=== PATIENT | male | born 1935 | race Caucasian/White ===

== ENCOUNTER → 2017-06-19 | Outpatient (CLI) | payer BC ==
[~2017-06-19] MED LIST: CALCTAB5 PO; CENTRUM A Z PO; CYAN100020 PO; Metamucil PO; OMEG10007 PO; Vitamin D PO
[2017-06-19 13:44] LABS: BASO % 1.9 %; BASO ABS # 0.07 K/uL (0-0.2); COMPLETE YES; EOS % 5.9 %; HEMATOCRIT 39.1 % (42-52); LYMPH % 23.2 %; LYMPH ABS # 0.86 K/uL (1.2-3.4); MEAN CELL VOLUME 105.7 fL (80-100); MEAN CORPUSCULAR HEMOGLOBIN 35.4 pg (25-34); MEAN CORPUSCULAR HGB CONC 33.5 g/dl (32-36); MEAN PLATELET VOLUME 9.6 fL (7.4-10.4); MONO % 14.1 %; NEUT % 54.9 %; PLATELET COUNT 202 K/uL (130-400)
[2017-06-19 14:05] LABS: ALT/SGPT 24 U/L (12-78); AST/SGOT 20 U/L (15-37); BLOOD UREA NITROGEN 16 mg/dl (7-18); BUN/CREATININE RATIO 14.1 (10-20); CALCIUM 8.7 mg/dl (8.5-10.1); CARBON DIOXIDE 25 mmol/L (21-32); CHLORIDE 107 mmol/L (98-107); GLUCOSE 88 mg/dl (70-99); POTASSIUM 4.5 mmol/L (3.5-5.1); SODIUM 140 mmol/L (136-145)
[2017-06-19 14:17] LABS: ALB/GLOB RATIO 1.1 (0.9-2); ALKALINE PHOSPHATASE 43 U/L (45-117); CHOLESTEROL 209 mg/dl (0-200); CHOLESTEROL/HDL RATIO 1.8; HDL CHOLESTEROL 116 mg/dl; LDL CHOLESTEROL CALCULATED 74 mg/dl; TRIGLYCERIDES 94 mg/dl (0-150); VERY LOW DENSITY LIPOPROT CALC 19 mg/dl
== END | disposition home or self-care (01) ==
LOC: C.LABBC 11:28
PROVIDERS: ATTEND Internal Medicine
DX: C18.9 Malignant neoplasm of colon, unspecified (principal); D72.819 Decreased white blood cell count, unspecified; D53.9 Nutritional anemia, unspecified; E53.8 Deficiency of other specified B group vitamins

== ENCOUNTER 2019-12-31 10:18 | Observation (INO) ==
[2019-12-31] MEDS ORDERED: SODIUM CHLORIDE 0.9% 1000ML 1,000 ML IV SCH (10:45)
--- NOTE | 2019-12-31 10:48 | Emergency Department Note ---
History of Present Illness General Chief complaint: Fall Stated complaint: back pain Time Seen by Provider: 12/31/19 10:22 Source: patient, family and EMS Mode of arrival: EMS Limitations: other (Alzheimer's dementia) History of Present Illness Maximum Pain Intensity: 4 This patient was brought in by EMS after having a fall. He was seen about 2 weeks ago and diagnosed with a T12 compression fracture. He lives at home with his . He does have Alzheimer's dementia and he has been getting increasing Diego confused and weak. Yesterday they did move the bedroom downstairs so he did not have to go up and down stairs he wandered up the stairs about an hour prior to arrival and she found him upstairs and he went to try to sit down where the bed was in the landed on his buttocks/back. There was no loss of consciousness or syncope. He is on no blood thinners. No chest pain or shortness of breath. he points to the epigastric area where he says he has some pain his does not think he injured himself there. He did travel to [place] on December 13 but since then has had no fever or flulike symptoms. He is scheduled to see orthopedics for his T12 compression fracture but has yet to see them. No defini te new numbness or weakness. He has had decreased appetite but has been drinking fluids. No blood or melena in his stool. Home Medications Home Medications Medication Instructions Recorded Confirmed Type cyanocobalamin (vitamin B-12) 1,000 mcg IM MONTHLY ea 07/16/19 12/31/19 History 1,000 mcg/mL injection kit ascorbic acid (vitamin C) [Vitamin 0 mg PO DAILY 12/18/19 12/31/19 History C] cholecalciferol (vitamin D3) 0 unit PO DAILY 12/18/19 12/31/19 History [Vitamin D3] cyanocobalamin (vitamin B-12) 0 mcg PO DAILY 12/18/19 12/31/19 History [Vitamin B-12] Allergies Allergy/AdvReac Type Severity Reaction Status Date / Time Influenza Virus Vaccines Allergy Mild Rash, Verified 12/31/19 11:22 swelling Past Med/Surg History Medical History (Updated 12/31/19 @ 14:05 by Chris Gomez, DO) Alcohol withdrawal B12 deficiency (Chronic) Basal cell carcinoma Cognitive impairment (Chronic) Colon cancer (Chronic) History of cataract Left eye Hyponatremia (Chronic) Macrocytic anemia (Chronic) MCI (mild cognitive impairment) Rosacea (Chronic) SIADH (syndrome of inappropriate ADH production) (Chronic) Syncope (Inactive) Vitamin D insufficiency (Chronic) Surgical History Fx wrist H/O inguinal hernia repair History of bowel resection History of colonoscopy History of hernia repair Hx of cholecystectomy Family History Father , Age 71 Stroke Mother , Age 92 Colorectal cancer Social History Preferred Language: Micronesian Communication Ability: Effective Visual Impairment: No Limitations Hearing Ability: Normal Pharmaceutical Representative Required: No Beliefs That Will Affect Care: None marital status: Current Living Situation: Spouse current occupational status: retired Other Information That Helps Us Care for You: No Feels Safe at Home: Yes Safety Concerns: Feels Safe At This Time Smoking Status: Never smoker Do You Dip or Chew Tobacco: No ; Second Hand Exposure: No ; Tobacco Cessation Education Requested by Patient: No Hx Alcohol Use: Yes Alcohol type: wine Alcohol Intake Frequency: Holidays/Special Occasions Hx Substance Use: No Childhood Exposure to Second-Hand Smoke: Yes Dental Care, Regularly: Yes Physical Activity Frequency: Daily Seatbelt Use: always Sunscreen Use: Yes Immunizations: Lives locally with his . Dr. Arnoldo Fuentes is his primary care physician Review of Systems Unobtainable due to cognitive status Due to his Alzheimer's dementia increasing confusion I am unable to get a reliable review of systems from the patient. I did discuss at least 10 systems with his Physical Exam Vital Signs Vital Signs - 24 hr 12/31/19 10:21 12/31/19 10:25 12/31/19 10:27 Temperature 36.5 C Temperature Source Oral Pulse Rate 78 76 75 Pulse Rate from SpO2 Sensor 78 79 Pulse Rhythm Regular Respiratory Rate 16 17 13 Respiratory Effort / Characteristics Non-Labored Spontaneous Respiratory Depth Normal Respiratory Pattern Regular Blood Pressure 196/96 H 196/96 H Blood Pressure Mean 134 129 Pulse Oximetry 100 100 100 Oxygen Delivery Method Room Air Sepsis Recent Fever Within 48 Hours No Sepsis New/Unexplained Change in Mental Status No Sepsis Action Taken by Nursing No Action Required 12/31/19 10:30 12/31/19 10:40 12/31/19 10:50 Temperature Temperature Source Pulse Rate 83 73 73 Pulse Rate from SpO2 Sensor 73 73 Pulse Rhythm Respiratory Rate 14 13 16 Respiratory Effort / Characteristics Respiratory Depth Respiratory Pattern Blood Pressure Blood Pressure Mean Pulse Oximetry 100 100 Oxygen Delivery Method Sepsis Recent Fever Within 48 Hours Sepsis New/Unexplained Change in Mental Status Sepsis Action Taken by Nursing 12/31/19 10:55 12/31/19 11:00 12/31/19 11:10 Temperature Temperature Source Pulse Rate 72 71 71 Pulse Rate from SpO2 Sensor Pulse Rhythm Regular Respiratory Rate 17 13 15 Respiratory Effort / Characteristics Respiratory Depth Respiratory Pattern Blood Pressure Blood Pressure Mean Pulse Oximetry 96 Oxygen Delivery Method Room Air Sepsis Recent Fever Within 48 Hours Sepsis New/Unexplained Change in Mental Status Sepsis Action Taken by Nursing 12/31/19 11:20 12/31/19 12:06 12/31/19 12:07 Temperature Temperature Source Pulse Rate 68 91 H 79 Pulse Rate from SpO2 Sensor 87 79 Pulse Rhythm Respiratory Rate 21 19 13 Respiratory Effort / Characteristics Respiratory Depth Respiratory Pattern Blood Pressure 179/109 H Blood Pressure Mean 143 Pulse Oximetry 100 100 Oxygen Delivery Method Sepsis Recent Fever Within 48 Hours Sepsis New/Unexplained Change in Mental Status Sepsis Action Taken by Nursing 12/31/19 12:10 12/31/19 12:20 12/31/19 12:30 Temperature Temperature Source Pulse Rate 76 72 75 Pulse Rate from SpO2 Sensor 75 70 74 Pulse Rhythm Respiratory Rate 13 18 16 Respiratory Effort / Characteristics Respiratory Depth Respiratory Pattern Blood Pressure Blood Pressure Mean Pulse Oximetry 100 99 99 Oxygen Delivery Method Sepsis Recent Fever Within 48 Hours Sepsis New/Unexplained Change in Mental Status Sepsis Action Taken by Nursing 12/31/19 12:38 12/31/19 12:40 12/31/19 12:50 Temperature Temperature Source Pulse Rate 72 73 72 Pulse Rate from SpO2 Sensor 73 73 71 Pulse Rhythm Respiratory Rate 14 16 17 Respiratory Effort / Characteristics Respiratory Depth Respiratory Pattern Blood Pressure 179/103 H Blood Pressure Mean 142 Pulse Oximetry 100 100 99 Oxygen Delivery Method Sepsis Recent Fever Within 48 Hours Sepsis New/Unexplained Change in Mental Status Sepsis Action Taken by Nursing 12/31/19 13:00 12/31/19 13:10 12/31/19 13:20 Temperature Temperature Source Pulse Rate 70 69 72 Pulse Rate from SpO2 Sensor 71 65 71 Pulse Rhythm Respiratory Rate 19 13 16 Respiratory Effort / Characteristics Respiratory Depth Respiratory Pattern Blood Pressure 180/95 H Blood Pressure Mean 100 Pulse Oximetry 100 100 100 Oxygen Delivery Method Sepsis Recent Fever Within 48 Hours Sepsis New/Unexplained Change in Mental Status Sepsis Action Taken by Nursing 12/31/19 13:30 Temperature Temperature Source Pulse Rate 71 Pulse Rate from SpO2 Sensor 71 Pulse Rhythm Respiratory Rate 15 Respiratory Effort / Characteristics Respiratory Depth Respiratory Pattern Blood Pressure Blood Pressure Mean Pulse Oximetry 100 Oxygen Delivery Method Sepsis Recent Fever Within 48 Hours Sepsis New/Unexplained Change in Mental Status Sepsis Action Taken by Nursing General: Well developed well nourished slender older male who appears alert and oriented x2 in no acute distress, breathing comfortably on room air. Normal speech HEENT: Normal cephalic atraumatic. Pupils are equal round and reactive to light. Extraocular movements are intact. Oropharynx is pink with moist mucous membranes. No swelling of the mouth lips or tongue. Neck: Supple with a midline trachea. No meningeal signs or stiffness, no JVD or bruits. No Stridor. Chest: Clear to auscultation bilaterally. No wheezes or rhonchi. No increased work of breathing. Heart: Regular rate and rhythm without murmurs or gallops. Abdomen: Soft nontender, nondistended without rebound guarding or rigidity. Extremities: No cyanosis clubbing or edema. No calf tenderness or assymetry Spine/Back. Non tender to palpation. No CVA tenderness Skin: Good turgor without rashes. Neurologic exam: Cranial nerves two through 12 are intact. Motor and sensation are intact and symmetrical throughout. He does appear to be mildly weak diffusely but nothing focally. Speech is nonslurred Course Administered Medications Acetaminophen (Tylenol) 1,000 mg PO TID CRYS Stop: 01/30/20 14:37 Last Admin: 12/31/19 15:22 Dose: 1,000 mg Documented by: [id number] Enoxaparin Sodium (Lovenox) 40 mg SQ Q24H CRYS Stop: 01/30/20 14:59 Last Admin: 12/31/19 15:23 Dose: 40 mg Documented by: [id number] Lidocaine (Lidoderm 5%) 3 patch TD QAM CRYS Stop: 01/30/20 14:37 Last Admin: 12/31/19 15:21 Dose: 3 patch Documented by: [id number] Discontinued Medications Sodium Chloride (Nss 1000ml) 1,000 mls @ 999 mls/hr IV .Q1H1M CRYS Stop: 12/31/19 11:45 Last Infusion: 12/31/19 14:10 Dose: 0 mls/hr Documented by: [id number] Admin: 12/31/19 11:03 Dose: 999 mls/hr Documented by: [id number] Ioversol (Optiray 320 100ml) 94 ml IV ONCE PRN PRN Reason: Interaction Checking Stop: 01/04/20 11:32 Last Admin: 12/31/19 11:33 Dose: 94 ml Documented by: [id number] Medical Decision Making Differential Diagnosis Differential diagnosis includes but is not limited to: Trauma, spinal fracture, internal injuries, arrhythmia, dehydration, weakness, intracranial process, CVA, UTI, electrolyte or metabolic abnormality Medical Records Attestation: I reviewed the patient's medical records. Home Medications Current Medication List: was personally reviewed by me Laboratory Data Attestation: I reviewed the patient's lab results. Result diagrams: 12/31/19 10:50 12/31/19 10:50 Lab Results 12/31/19 12/31/19 12/31/19 Range/Units 10:50 10:50 12:05 WBC 6.14 (4.8-10.8) K/uL RBC 4.32 L (4.7-6.1) M/uL Hgb 14.5 (14.0-18.0) g/dL Hct 42.6 (42-52) % MCV 98.6 (80-100) fL MCH 33.6 (25-34) pg MCHC 34.0 (32-36) g/dL RDW Std Deviation 47.5 H (36.4-46.3) fL RDW Coeff of Krystal 13.1 (11.5-14.5) % Plt Count 286 (130-400) K/uL MPV 9.2 (7.4-10.4) fL Immature Gran % (Auto) 0.2 % Neut % (Auto) 77.4 % Lymph % (Auto) 11.4 % [place] % (Auto) 9.1 % Eos % (Auto) 1.6 % Baso % (Auto) 0.3 % Immature Gran # (Auto) 0.01 (0.00-0.02) K/uL Neut # (Auto) 4.75 (1.4-6.5) K/uL Lymph # (Auto) 0.70 L (1.2-3.4) K/uL [place] # (Auto) 0.56 (0.11-0.59) K/uL Eos # (Auto) 0.10 (0-0.5) K/uL Baso # (Auto) 0.02 (0-0.2) K/uL Sodium 138 (136-145) mmol/L Potassium 3.4 L (3.5-5.1) mmol/L Chloride 106 (98-107) mmol/L Carbon Dioxide 29 (21-32) mmol/L Anion Gap 3.0 (3-11) BUN 30 H (7-18) mg/dl Creatinine 1.25 (0.6-1.4) mg/dl Est Cr Clr Drug Dosing 32.7 ml/min Est GFR ( Amer) 61.3 Est GFR (Non-Af Amer) 52.9 BUN/Creatinine Ratio 24.0 H (10-20) Glucose 104 H (70-99) mg/dl Calcium 9.9 (8.5-10.1) mg/dl Magnesium 2.3 (1.8-2.4) mg/dl Total Bilirubin 0.7 (0.2-1) mg/dl AST 14 L (15-37) U/L ALT 22 (12-78) U/L Alkaline Phosphatase 102 (45-117) U/L Troponin I 0.015 (0-0.045) ng/ml Total Protein 7.9 (6.4-8.2) gm/dl Albumin 3.8 (3.4-5.0) gm/dl Globulin 4.1 H (2.5-4.0) gm/dl Albumin/Globulin Ratio 0.9 (0.9-2) TSH 2.030 (0.300-4.500) uIu/ml Urine Color Yellow Urine Appearance Clear (Clear) Urine pH 5.0 (4.5-7.5) Ur Specific [place] 1.017 (1.000-1.030) Urine Protein Negative (Negative) Urine Glucose (UA) Negative (Negative) Urine Ketones Trace H (Negative) Urine Blood Trace H (Negative) Urine Nitrite Negative (Negative) Urine Bilirubin Negative (Negative) Urine Urobilinogen Negative (Negative) Ur Leukocyte Esterase Negative (Negative) Urine WBC (Auto) 1-5 (0-5) /hpf Urine RBC (Auto) 0-4 (0-4) /hpf U Hyaline Cast (Auto) 1-5 (0-5) /lpf U Epithel Cells (Auto) 10-20 H (0-5) /lpf Urine Bacteria (Auto) Negative (Negative) Imaging Data Attestation: I personally reviewed and interpreted this imaging study as follows: My Impression: Chest x-ray: No acute infiltrate failure or pneumothorax seen Radiologist's Impression: Chest x-ray: No acute findings Head CT: Chest CT with IV contrast: Abdomen and pelvis CT with IV contrast: Please refer to radiology report ECG Data Attestation: I personally reviewed and interpreted this ECG as follows: Indication: + weakness Rate (beats per minute): 79 Rhythm: + sinus with SA ECG [place]: + Normal ECG ST segments: + Normal ST segments; no T-wave inversions ECG Findings: + Poor R wave progression Comparison ECG Date: from (12/18/19) Change: no significant change Blood Pressure Blood Pressure Findings: Elevated blood pressure Blood Pressure Disposition: elevated BP felt to be situational MDM Narrative This patient comes in as described above. He has fallen twice recently and fell again today he has had some increasing confusion and weakness he does have dementia. He lives at home with his . On my exam, he has a nonfocal neurologic exam. IV access was established and given his increasing weakness multiple blood testing was obtained as well as your urinalysis and culture and EKG. I also did a chest x-ray and CAT scan of his head, chest and abdomen. He was reassessed frequently. He was gently hydrated with 1 L normal saline IV bolus. EKG does not show any acute ischemic changes or significant arrhythmia. I did compare to the most recent EKG as well and shows no acute change. Chest x-ray was unremarkable. there is no congestive heart failure, pneumonia, or pneumothorax. He has no white count or fever to suggest infection. His symptoms do not suggest coronavirus. He is not significantly anemic. BUN is mildly elevated consistent with dehydration. He has no other significant electrolyte or metabolic abnormalities. Urinalysis does not suggest a UTI. I did a CAT scan of his head and there are no acute findings. CAT scan of the chest and abdomen show the subacute fracture that is unchanged of T12 there is some moderate retropulsion with 5 mm with some spinal cord impingement. He does not have any acute neurologic deficits but I think that given his increasing weakness and confusion that he would warrant admission/observation possible rehab and spinal consultation. He is unlikely a good surgical candidate but may benefit from a brace as well. [facility] these measures. monitoring and evaluation advisor: The patient was placed on a residential monitor due to his weakness and fall. An order was placed in the computer by myself and he was placed on a monitor upon arrival and at 1055 he was noted to be in normal sinus rhythm at a rate of 70 without any significant arrhythmia seen. Was kept on the monitor during his entire stay Impression & Plan Weakness, HTN (hypertension), Compression fracture of T12 vertebra, Fall, Confusion, Acute dehydration Discharge Plan Visit Data *Final* Discharge Date/Time: 12/31/19 14:17 Chief Complaint: Fall Stated Complaint: back pain ED Provider: Manuel Sutton Discharge Problem: Weakness, HTN (hypertension), Compression fracture of T12 vertebra, Fall, Confusion, Acute dehydration Patient Disposition: Admitted As Inpatient Discharge Instructions Interventions: ED Discharge Assessment Last Done: 12/31/19 14:17 Discharge Problem: HTN (hypertension) Qualifiers: Hypertension type: essential hypertension Qualified Code(s): I10 - Essential (primary) hypertension Compression fracture of T12 vertebra Qualifiers: Encounter type: subsequent encounter Fracture healing: with routine healing Qualified Code(s): S22.080D - Wedge compression fracture of T11-T12 vertebra, subsequent encounter for fracture with routine healing Fall Qualifiers: Encounter type: initial encounter Qualified Code(s): W19.XXXA - Unspecified fall, initial encounter
--- NOTE | 2019-12-31 10:59 | XRay Report ---
XR chest 1V portable HISTORY: Weakness. COMPARISON: Chest 12/18/2019. FINDINGS: Mild to moderate emphysema is again noted. The lungs are clear. No pleural effusions. No pn eumothorax. The heart is normal in size. Suggestive of prior cholecystectomy. IMPRESSION: No significant change compared to the prior study. No acute process. ACT 112: Negative or not required by law. Electronically signed by: Ignacio Kirk M.D. 12/31/2019 10:58 AM
[2019-12-31 11:01] LABS: Basophils # (auto) 0.02 K/uL (0-0.2); Basophils % (auto) 0.3 %; Eosinophils % (auto) 1.6 %; Hematocrit (blood only) 42.6 % (42-52); Hemoglobin 14.5 g/dL (14.0-18.0); Immature Granulocytes # (auto) 0.01 K/uL (0.00-0.02); Immature Granulocytes % (auto) 0.2 %; Lymphocytes % (auto) 11.4 %; Mean Corpuscular Hemoglobin 33.6 pg (25-34); Mean Corpuscular Volume 98.6 fL (80-100); Mean Platelet Volume 9.2 fL (7.4-10.4); Monocytes # (auto) 0.56 K/uL (0.11-0.59); Monocytes % (auto) 9.1 %; Neutrophils # (auto) 4.75 K/uL (1.4-6.5); Neutrophils % (auto) 77.4 %; Platelet Count 286 K/uL (130-400); RDW Coefficient of Variation 13.1 % (11.5-14.5); RDW Standard Deviation 47.5 fL (36.4-46.3); Red Blood Count 4.32 M/uL (4.7-6.1); White Blood Count 6.14 K/uL (4.8-10.8)
[2019-12-31 11:19] LABS: Albumin Level 3.8 gm/dl (3.4-5.0); Calcium 9.9 mg/dl (8.5-10.1); Creatinine Clr Calc Pharmacy 32.7 ml/min; Est GFR (African American) 61.3; Est GFR (Non-African American) 52.9; Magnesium 2.3 mg/dl (1.8-2.4); Potassium 3.4 mmol/L (3.5-5.1)
[2019-12-31 11:30] LABS: Albumin Globulin Ratio 0.9 (0.9-2); Bilirubin,Total 0.7 mg/dl (0.2-1); Globulin 4.1 gm/dl (2.5-4.0); Thyroid Stimulating Hormone 2.03 uIu/ml (0.300-4.500); Total Protein 7.9 gm/dl (6.4-8.2); Troponin I 0.015 ng/ml (0-0.045)
[2019-12-31] MEDS ORDERED: IOVERSOL 100ml IV PRN (11:33)
--- NOTE | 2019-12-31 11:42 | CT Scan Report ---
CT SCAN OF THE BRAIN WITHOUT IV CONTRAST CLINICAL HISTORY: Generalized weakness. Fall. Change in mental status. COMPARISON STUDY: CT of the brain dated 12/18/2019. TECHNIQUE: Unenhanced axial CT scan of the brain is performed from the vertex to the skull base. A do se lowering technique was utilized adhering to the principles of ALARA. CT DOSE: 729.78 mGycm FINDINGS: Brain parenchyma: There are age-related involutional changes noting mild to moderate subcortical and periventricular microangiopathic change. There is no hemorrhage, mass effect, or evidence of acute t erritorial ischemia by CT criteria. Quintana-white matter differentiation is preserved. No extra-axial fl uid collection is seen. Ventricles, sulci, cisterns: Prominent secondary to involutional change. Intracranial vasculature: There is atherosclerotic calcification of the cavernous carotid and vertebr al arteries. Calvarium: The skeletal structures are osteopenic. No depressed calvarial fracture is identified. Sinuses and mastoids: Retention cysts are present in the maxillary antra and measure up to 2.5 cm. Th e visualized paranasal sinuses are otherwise clear. The mastoid air cells are well pneumatized. Orbits: The bony orbits are grossly intact. There is a left ocular lens implant. IMPRESSION: There is no hemorrhage, mass effect, or evidence of acute territorial ischemia by CT cynthia ivey. ACT 112: Negative or not required by law. Electronically signed by: Dusty Suazo M.D. 12/31/2019 11:41 AM
--- NOTE | 2019-12-31 11:57 | CT Scan Report ---
CHEST CT WITH CONTRAST CT DOSE: 1005.30 mGycm HISTORY: fall, recent t12 fx TECHNIQUE: Multiaxial CT images of the chest were performed following the intravenous administration of contrast. A dose lowering technique was utilized adhering to the principles of ALARA. COMPARISON: Lumbar spine radiograph 12/18/2019. PET CT 04/14/2014. FINDINGS: Redemonstration of the severe compression deformity at T12 which demonstrates 5 mm of retro pulsion resulting in moderate to severe central canal narrowing at this level. There is surrounding p aravertebral edema. Therefore, this suggests an acute to subacute compression fracture. Overall, this is similar to the prior study. No additional thoracic spine fractures identified. Multiple bilateral rib deformities consistent with old, healed fractures. No acute rib fractures identified. Mild calci fied plaque within the normal caliber thoracic aorta. The heart is normal in size. The main pulmonary arteries are patent. No pleural or pericardial effusions. Normal esophagus. No mediastinal or hilar lymphadenopathy. No pneumothorax. The central airways are patent. A 2 mm nodule within the left upper lobe on image 47. Tiny nodular densities within the right lung apex of doubtful clinical significanc e. No focal lung consolidations to suggest pneumonia. No evidence for pulmonary edema. IMPRESSION: 1. No significant change in the acute to subacute severe compression fracture at T12 which demonstrat es 5 mm of retropulsion resulting in moderate to severe central canal narrowing at this level. 2. Otherwise, no acute process within the chest. ACT 112: Negative or not required by law. Electronically signed by: Ignacio Kirk M.D. 12/31/2019 11:56 AM
--- NOTE | 2019-12-31 11:58 | CT Scan Report ---
CT SCAN OF THE ABDOMEN AND PELVIS WITH IV CONTRAST CLINICAL HISTORY: Fall. Reported history of recent T12 fracture. COMPARISON STUDY: Abdominal CT dated 09/04/2007. TECHNIQUE: Following the IV administration of 94 cc of Optiray 320, CT scan of the abdomen and pelvi s is performed from the lung bases to the proximal femora. Images are reviewed in the axial, sagittal , and coronal planes. IV contrast was administered without complication. A dose lowering technique wa s utilized adhering to the principles of ALARA. The examination is degraded by motion artifact, as we ll as by streak artifact from the arms which could not be elevated above the abdomen. FINDINGS: Lung bases: The heart is normal in size and without pericardial effusion. The lung bases are clear. T here is no basilar pneumothorax. Liver: The contrast-enhanced liver is normal in size, contour, and attenuation. There is minimal cent ral intrahepatic biliary ductal dilatation. The hepatic veins and portal veins are patent. A subcenti meter cyst is noted in the caudate. Gallbladder: Surgically absent noting clips in the gallbladder fossa. Spleen: Normal in size and attenuation. Pancreas: Unremarkable. Adrenal glands: Unremarkable. Kidneys: The contrast enhanced kidneys demonstrate cortical atrophy and are without hydronephrosis. T he kidneys enhance symmetrically. Abdominal vasculature: The abdominal aorta is normal in course and caliber noting moderate atheroscle rotic calcification. Bowel: There is no bowel obstruction. There is moderate to advanced colonic diverticulosis without CT evidence of acute diverticulitis. Mild colonic fecal retention is observed. The appendix is not sofia ntified and reported surgically absent. Peritoneum: There is no intraperitoneal free air or abdominal ascites. Lymphadenopathy: None. Pelvic viscera: There is median lobe hypertrophy of the prostate gland. The bladder wall is mildly th ickened and trabeculated suggesting chronic outlet obstruction. Skeletal structures: The skeletal structures are osteopenic. There is a moderate acute to subacute ap pearing compression fracture of T12. Fragments are retropulsed by up to 8 mm. This causes moderate co mpromise of the central spinal canal. The lumbosacral spine, bony pelvis, and proximal femora appear intact. There are healed left posterior rib fractures. No lytic or blastic lesions are seen. IMPRESSION: 1. Streak and motion degraded examination. 2. There is no evidence of solid organ injury in the abdomen or pelvis. 3. There is a moderate acute to subacute compression fracture of T12. Retropulsed fragments cause at least moderate acquired compromise of the central canal. 4. No additional fracture is identified. 5. Moderate to advanced colonic diverticulosis without CT evidence of acute diverticulitis. 6. Additional findings as above. ACT 112: Negative or not required by law. Electronically signed by: Dusty Suazo M.D. 12/31/2019 11:56 AM
[2019-12-31 12:23] LABS: Appearance Urine Clear (Clear); Bacteria Urine Automated Negative (Negative); Bilirubin Urine Negative (Negative); Blood Urine Trace (Negative); Color Urine Yellow; Glucose Urine UA Negative (Negative); Ketones Urine Trace (Negative); Leukocyte Esterase Urine Negative (Negative); Nitrite Urine Negative (Negative); Protein Urine Negative (Negative); RBC Urine Automated 0-4 /hpf (0-4); Specific Gravity Urine 1.017 (1.000-1.030); Urobilinogen Urine Negative (Negative)
--- NOTE | 2019-12-31 12:58 | History & Physical Report ---
Date of Service December 31, 2019 Assessment & Plan (1) Fall: 84 year old male with alzheimers dementia with worsening confusion and frequent falls. Will admit as observation. Patient will be placed on fall precautions. Will have PT and OT evaluate. (2) Compression fracture of T12 vertebra: Will consult ortho spine. Will order TLSO. Will put patient on scheduled tylenol, miacalcin and lidoderm patches. Will have Prn low dose tramadol. (3) Weakness: PT / OT eval (4) Acute dehydration: Patient hydrated in ER. Will monitor BMP in AM (5) HTN (hypertension): Likely secondary to pain. Baseline in Sep 120/60. Will get good pain control and reevaluate. (6) Confusion: Likely multifactorial. Patient with worsening alzheimers dementia. Recent travel may have added to confusion, Pain from his fracture could be contributing. Due to worsening confusion and syncope with previous fall, will check mri. (7) Alcohol withdrawal: Patient likes to consume his wine per his . She states it has been about a week since he had anything to drink Will put patient on folic acid and thiamine. History of Present Illness Chief Complaint: Frequent falls, altered mental status Primary Care Provider: Arnoldo Fuentes MD This is a 84 year old male with a history of alzheimers dementia, SIADH, colon cancer s/p partial colectomy with primary anastomosis, vit D def and T12 compression fracture who presents to the ED with frequent falls and worsening confusion. Patient returned home from [place] on December 13 with his . On December 17, he had a syncopal episode and was brought to the ED. Patient was found to have a T12 compression fracture. Patient was referred to orthopedics, but was not seen due to the recent travel. Patient and his have been self quarantined since. Patients moved his bedroom down stairs so he wouldnt have to use the stairs. After going to the bathroom, patient went back upstairs not listening to his . He went to sit down on the bed and fell to the floor. Mrs. Arreola states patient was having good days and bad days with his dementia. Since then, he has had a string of bad days. She has been treating his pain with tylenol and advil. Allergies Allergy/AdvReac Type Severity Reaction Status Date / Time Influenza Virus Vaccines Allergy Mild Rash, Verified 12/31/19 11:22 swelling Home Medications Home Medications Medication Instructions Recorded Confirmed Type cyanocobalamin (vitamin B-12) 1,000 mcg IM MONTHLY ea 07/16/19 12/31/19 History 1,000 mcg/mL injection kit ascorbic acid (vitamin C) [Vitamin 0 mg PO DAILY 12/18/19 12/31/19 History C] cholecalciferol (vitamin D3) 0 unit PO DAILY 12/18/19 12/31/19 History [Vitamin D3] cyanocobalamin (vitamin B-12) 0 mcg PO DAILY 12/18/19 12/31/19 History [Vitamin B-12] Past Med/Surg History Medical History (Updated 12/31/19 @ 14:05 by Chris Gomez DO) Alcohol withdrawal B12 deficiency (Chronic) Basal cell carcinoma Cognitive impairment (Chronic) Colon cancer (Chronic) History of cataract Left eye Hyponatremia (Chronic) Macrocytic anemia (Chronic) MCI (mild cognitive impairment) Rosacea (Chronic) SIADH (syndrome of inappropriate ADH production) (Chronic) Syncope (Inactive) Vitamin D insufficiency (Chronic) Surgical History Fx wrist H/O inguinal hernia repair History of bowel resection History of colonoscopy History of hernia repair Hx of cholecystectomy Family History Father , Age 71 Stroke Mother , Age 92 Colorectal cancer Social History Preferred Language: Norwegian Communication Ability: Effective Visual Impairment: No Limitations Hearing Ability: Normal Peer Financial Counselor Required: No Beliefs That Will Affect Care: None marital status: Current Living Situation: Spouse current occupational status: retired Other Information That Helps Us Care for You: No Feels Safe at Home: Yes Safety Concerns: Feels Safe At This Time Smoking Status: Never smoker Do You Dip or Chew Tobacco: No ; Second Hand Exposure: No ; Tobacco Cessation Education Requested by Patient: No Hx Alcohol Use: Yes Alcohol type: wine Alcohol Intake Frequency: Holidays/Special Occasions Hx Substance Use: No Childhood Exposure to Second-Hand Smoke: Yes Dental Care, Regularly: Yes Physical Activity Frequency: Daily Seatbelt Use: always Sunscreen Use: Yes Review of Systems Review of Systems: Dr. Ramirez was unable to answer ros due to dementia. 10 pt review of systems was negative per patients . Physical Exam Constitutional: WD/WN, vitals as above Eyes: PERRL, conjunctivae normal, anicteric sclerae ENMT: external ear and nose normal, oropharynx normal Ears: no hearing impairment Neck: trachea midline, no thyromegaly Respiratory: normal respiratory effort, lungs clear to auscultation Cardiovascular: RRR, no murmur, no edema Gastrointestinal (Abdomen): normal bowel sounds, soft, nontender, no hepatosplenomegaly Musculoskeletal: tender at t 12 Neurologic: awake and + confused Psychiatric: Orientation: alert, oriented to person, oriented to place and cooperative Results & Data Results & [facility] ([facility]) Vital Signs (Past 12 Hours) Vital Signs Temp Pulse Resp BP Pulse Ox 12/31/19 12:10 76 13 100 12/31/19 12:07 79 13 179/109 H 100 12/31/19 12:06 91 H 19 100 12/31/19 11:20 68 21 12/31/19 11:10 71 15 12/31/19 11:00 71 13 12/31/19 10:55 72 17 96 12/31/19 10:50 73 16 12/31/19 10:40 73 13 100 12/31/19 10:30 83 14 100 12/31/19 10:27 75 13 100 12/31/19 10:25 36.5 C 76 17 196/96 H 100 12/31/19 10:21 78 16 196/96 H 100 Laboratory Results 12/31/19 12/31/19 12/31/19 Range/Units 12:05 10:50 10:50 WBC 6.14 (4.8-10.8) K/uL RBC 4.32 L (4.7-6.1) M/uL Hgb 14.5 (14.0-18.0) g/dL Hct 42.6 (42-52) % MCV 98.6 (80-100) fL MCH 33.6 (25-34) pg MCHC 34.0 (32-36) g/dL RDW Std Deviation 47.5 H (36.4-46.3) fL RDW Coeff of Krystal 13.1 (11.5-14.5) % Plt Count 286 (130-400) K/uL MPV 9.2 (7.4-10.4) fL Immature Gran % (Auto) 0.2 % Neut % (Auto) 77.4 % Lymph % (Auto) 11.4 % [place] % (Auto) 9.1 % Eos % (Auto) 1.6 % Baso % (Auto) 0.3 % Immature Gran # (Auto) 0.01 (0.00-0.02) K/uL Neut # (Auto) 4.75 (1.4-6.5) K/uL Lymph # (Auto) 0.70 L (1.2-3.4) K/uL [place] # (Auto) 0.56 (0.11-0.59) K/uL Eos # (Auto) 0.10 (0-0.5) K/uL Baso # (Auto) 0.02 (0-0.2) K/uL Sodium 138 (136-145) mmol/L Potassium 3.4 L (3.5-5.1) mmol/L Chloride 106 (98-107) mmol/L Carbon Dioxide 29 (21-32) mmol/L Anion Gap 3.0 (3-11) BUN 30 H (7-18) mg/dl Creatinine 1.25 (0.6-1.4) mg/dl Est Cr Clr Drug Dosing 32.7 ml/min Est GFR ( Amer) 61.3 Est GFR (Non-Af Amer) 52.9 BUN/Creatinine Ratio 24.0 H (10-20) Glucose 104 H (70-99) mg/dl Calcium 9.9 (8.5-10.1) mg/dl Magnesium 2.3 (1.8-2.4) mg/dl Total Bilirubin 0.7 (0.2-1) mg/dl AST 14 L (15-37) U/L ALT 22 (12-78) U/L Alkaline Phosphatase 102 (45-117) U/L Troponin I 0.015 (0-0.045) ng/ml Total Protein 7.9 (6.4-8.2) gm/dl Albumin 3.8 (3.4-5.0) gm/dl Globulin 4.1 H (2.5-4.0) gm/dl Albumin/Globulin Ratio 0.9 (0.9-2) TSH 2.030 (0.300-4.500) uIu/ml Urine Color Yellow Urine Appearance Clear (Clear) Urine pH 5.0 (4.5-7.5) Ur Specific [place] 1.017 (1.000-1.030) Urine Protein Negative (Negative) Urine Glucose (UA) Negative (Negative) Urine Ketones Trace H (Negative) Urine Blood Trace H (Negative) Urine Nitrite Negative (Negative) Urine Bilirubin Negative (Negative) Urine Urobilinogen Negative (Negative) Ur Leukocyte Esterase Negative (Negative) Urine WBC (Auto) 1-5 (0-5) /hpf Urine RBC (Auto) 0-4 (0-4) /hpf U Hyaline Cast (Auto) 1-5 (0-5) /lpf U Epithel Cells (Auto) 10-20 H (0-5) /lpf Urine Bacteria (Auto) Negative (Negative) Diagnostic Findings ct head - neg for mass, bleed or evidence of stroke cxr - hyperinflation ct chest no significant change in acute seves compression fracture at T12 which demonstrates 5mm of retropulsion resulting in moderate to severe central canal narrowing ct abd - advanced diverticulosis, no solid organ injury Code Status & VTE Plan Code Status Full code VTE Prophylaxis Plan VTE Prophylaxis will be ordered: Yes Supervising Physician Co-Signing Physician Notes Attending Admission Note & Attestation: Pt seen/examined, chart reviewed in detail, care plan d/w Dr Chris Gomez. I agree w/ the aguilar components of his admission documentation. 84yo male with Alzheimer's disease x 3-4 years and prior colon cancer who presents with his 2nd fall in <2 weeks. First fall/syncopal episode was on December 16. reports he lost consciousness for about 1-2 minutes but was "out of it" for about 60-90 min. Was seen in ER - dx with T12 compression fracture - released home. Since then has had back pain - treated w/ tylenol and motrin. Since then has had increasing confusion, failure to thrive, poor appetite, etc. states that at baseline he is alert/oriented x 3 (?) despite the dementia. Today he had an unwitnessed fall. Apparently was trying to sit down on the bed but he didn't realize the bed wasn't there. No loss of consciousness today per . Pt & his had traveled from [place], [place] on December 13 by plane. No fevers, chills, cough, myalgias, or infectious symptoms. He has had increasing fatigue however over the last 10 days. During my assessment he offered no history and had difficult time answering my questions. Denied pain during my assessment. PMH, PSH, allergies, meds, sochx, famhx - reviewed gen - thin, NAD eyes - PERRL, lens implants b/l mouth - MMM neck - no lymphadenopathy; no cervical spine tenderness heart - RRR, s1 s2, 1-2/6 systolic murmur LLSB lungs - CTA b/l abd - soft NT ND BS+ ext - no signs of trauma, no edema, pulses 2+ b/l neuro - strength 5/5 x 4 exts; DTRs 2+ b/l upper & lower exts; no facial droop skin - no rash labs - CBC unremarkable mild lymphopenia is chronic BMP - K 3.4, Cr 1.2 u/a - unremarkable, 1+ blood, micro neg bacteria TSH wnl EKG - NSR, no ST changes CT chest/abd/pelvis - T12 compression Fx with retropulsion and mod-severe canal stenosis from such; no pneumonia or other findings A/P: 1. falls x 2 over the last 14 days 2. syncope associated with first fall on December 16 3. encephalopathy in the setting of Alzheimer's dementia 4. apparent failure to thrive and recent weight loss of 7 kg c/w at least moderate protein calorie malnutrition, borderline severe 5. recent travel from [place] but no apparent signs/symptoms of COVID-19 6. mild hypokalemia 7. T12 compression fracture but no evidence of neurological compromise on exam * Dr Rock to consult for #7 * orthotics consult for TLSO brace for #7 * tylenol, tramadol prn, lidoderm patches, heat, brace, miacalcin nasal spray * check 25-OH vit D level in am * replace low K; check mag level am * PT, OT evals * MRI brain in light of falls and recent syncopal episode * h/o alcohol use - thiamine, MVI, folate supplementation I question if the recent travels from [place] to [employer] caused a significant interruption in his day-to-day routine & environment lending itself to worsening delirium. Again I do not see any overt evidence of infectious process at this time. TSH, most recent B12 level, etc all wnl as well. To obtain MRI brain. updated at bedside. Ramses Rainey MD PG Care Time/CCT Total # of Minutes Spent Total Time Spent with Patient: Total time spent is greater than 50% in coordination of care (as documented) at patient's floor/unit and/or counseling patient: 45 Coding Level of Care Code 83308 OBS Care - Level 3 Diagnoses Fall W19.XXXA Encounter type: initial encounter Compression fracture of T12 vertebra S22.080D Encounter type: subsequent encounter Fracture healing: with routine healing Weakness R53.1 Acute dehydration E86.0 HTN (hypertension) I10 Hypertension type: essential hypertension Confusion R41.0 Alcohol withdrawal F10.239 (1) Compression fracture of T12 vertebra Encounter type: subsequent encounter Fracture healing: with routine healing Qualified Code(s): S22.080D - Wedge compression fracture of T11-T12 vertebra, subsequent encounter for fracture with routine healing (2) HTN (hypertension) Hypertension type: essential hypertension Qualified Code(s): I10 - Essential (primary) hypertension (3) Fall Encounter type: initial encounter Qualified Code(s): W19.XXXA - Unspecified fall, initial encounter
[2019-12-31] MEDS ORDERED: POLYETHYLENE (MIRALAX) 17 GM PACK PO PRN (14:38)
[2019-12-31] MEDS ORDERED: TRAMADOL HCL 50 MG TABLET PO PRN (14:38)
[2019-12-31] MEDS ORDERED: ONDANSETRON INJ 2 MG/ML 2 ML VIAL IV PRN (14:38)
[2019-12-31] MEDS: LIDOCAINE 5% 1 PATCH TD SCH (15:21)
[2019-12-31] MEDS: ACETAMINOPHEN 500 MG TAB PO SCH ×2 (15:22→21:52)
[2019-12-31] MEDS: ENOXAPARIN INJ 40 MG/0.4 ML SYR SQ SCH (15:23)
--- NOTE | 2019-12-31 17:36 | Electrocardiogram Report ---
Test Reason : Blood Pressure : / mmHG Vent. Rate : 079 BPM Atrial Rate : 079 BPM P-R Int : 156 ms QRS Dur : 082 ms QT Int : 380 ms P-R-T Axes : 074 027 043 degrees QTc Int : 435 ms Normal sinus rhythm Electronic atrial pacemaker Septal infarct , age undetermined Abnormal ECG When compared with ECG of 18-DEC-2019 15:10, Premature atrial complexes are now Present Confirmed by Donaldo Gonzales ([id number]) on 12/31/2019 5:36:09 PM Referred By: REFERRED SELF Confirmed By:Donaldo Gonzales
--- NOTE | 2019-12-31 18:54 | Magnetic Resonance Report ---
MRI OF THE BRAIN WITHOUT CONTRAST CLINICAL HISTORY: syncope WEAKNESS, INCREASING CONFUSION. COMPARISON STUDY: Noncontrast CT scan dated 12/31/2019, MRI the brain dated 07/23/2019. FINDINGS: Sagittal T1, axial diffusion, proton density and T2 weighted axial, coronal FLAIR, and axial T1-weigh mary images were acquired. No intra or extra-axial mass lesions are visualized Axial diffusion-weighted images reveal no evidence of acute or subacute infarction. There is no evidence of ventricular dilatation. Proton density T2-weighted and FLAIR images reveal scattered foci of increased T2 signal within the w cecilia matter, likely on a small vessel basis. There are age-related involutional changes There are no abnormal flow voids. There are bilateral maxillary sinus retention cyst. IMPRESSION: 1. No acute intracranial findings 2. No evidence of acute or subacute infarction. 3. No evidence of intracranial mass on this noncontrast study. ACT 112: Negative or not required by law. Electronically signed by: Eliceo Perez M.D. 12/31/2019 6:53 PM
[2020-01-01 06:20] LABS: BUN Creatinine Ratio 25.9 (10-20); Calcium 8.9 mg/dl (8.5-10.1); Creatinine Clr Calc Pharmacy 34.4 ml/min; Est GFR (African American) 65.1; Est GFR (Non-African American) 56.2; Magnesium 2.2 mg/dl (1.8-2.4); Potassium 3.2 mmol/L (3.5-5.1)
[2020-01-01] MEDS: FOLIC ACID 1 MG TAB PO SCH (09:06)
[2020-01-01] MEDS: CALCITONIN SALMON NA 200 IU/AC 3.7 ML BTL SCH (09:06)
[2020-01-01] MEDS: MULTIVITAMIN TAB PO SCH (09:07)
[2020-01-01] MEDS: ACETAMINOPHEN 500 MG TAB PO SCH ×3 (09:07→20:06)
[2020-01-01] MEDS: THIAMINE HCL 100 MG TAB PO SCH (09:07)
[2020-01-01] MEDS: CYANOCOBALAMIN 500 MCG TABLET (VITAMIN B-12) PO SCH (09:08)
[2020-01-01] MEDS: CHOLECALCIFEROL 1,000 UNITS 25 MCG TAB PO SCH (09:08)
[2020-01-01] MEDS: ASCORBIC ACID 500 MG TAB PO SCH (09:08)
[2020-01-01] MEDS: LIDOCAINE 5% 1 PATCH TD SCH (09:15)
--- NOTE | 2020-01-01 09:53 | Orthopedic Consultation ---
Date of Consultation January 01, 2020 Assessment & Plan (1) Compression fracture of T12 vertebra: At this time I would encourage physical therapy and occupational therapy to begin working with the patient. Understand a TLSO brace has been ordered. Hopefully he will be able to tolerate this however it would not be imperative. Suspect the fracture is healing appropriately and he would not require any surgical intervention. Present on Admission?: Yes History of Present Illness Reason for Consultation: Back pain T12 compression fracture Attending Physician: Ramses Young MD History of Present Illness This is a very pleasant 84-year-old male with a history of confusion and Alzheimer's with a history of a T12 compression fracture. An x-ray from 12/18/2019 demonstrates approximately 50% wedge deformity of T12. This morning he denies any significant discomfort. He states he has some stinging with twisting in bed. He denies any numbness or tingling into the lower extremities. Allergies Allergy/AdvReac Type Severity Reaction Status Date / Time Influenza Virus Vaccines Allergy Mild Rash, Verified 12/31/19 11:22 swelling Home Medications Home Medications Medication Instructions Recorded Confirmed Type cyanocobalamin (vitamin B-12) 1,000 mcg IM MONTHLY ea 07/16/19 12/31/19 History 1,000 mcg/mL injection kit ascorbic acid (vitamin C) [Vitamin 0 mg PO DAILY 12/18/19 12/31/19 History C] cholecalciferol (vitamin D3) 0 unit PO DAILY 12/18/19 12/31/19 History [Vitamin D3] cyanocobalamin (vitamin B-12) 0 mcg PO DAILY 12/18/19 12/31/19 History [Vitamin B-12] Patient History Medical History (Updated 12/31/19 @ 14:05 by Chris Gomez DO) Alcohol withdrawal B12 deficiency (Chronic) Basal cell carcinoma Cognitive impairment (Chronic) Colon cancer (Chronic) History of cataract Left eye Hyponatremia (Chronic) Macrocytic anemia (Chronic) MCI (mild cognitive impairment) Rosacea (Chronic) SIADH (syndrome of inappropriate ADH production) (Chronic) Syncope (Inactive) Vitamin D insufficiency (Chronic) Surgical History Fx wrist H/O inguinal hernia repair History of bowel resection History of colonoscopy History of hernia repair Hx of cholecystectomy Family History Father , Age 71 Stroke Mother , Age 92 Colorectal cancer Social History Preferred Language: Khmer Communication Ability: Effective Visual Impairment: No Limitations Hearing Ability: Normal Skating Rink Ice Maker Required: No Beliefs That Will Affect Care: None marital status: Current Living Situation: Spouse current occupational status: retired Other Information That Helps Us Care for You: No Feels Safe at Home: Yes Safety Concerns: Feels Safe At This Time Smoking Status: Never smoker Do You Dip or Chew Tobacco: No ; Second Hand Exposure: No ; Tobacco Cessation Education Requested by Patient: No Hx Alcohol Use: Yes Alcohol type: wine Alcohol Intake Frequency: Holidays/Special Occasions Hx Substance Use: No Childhood Exposure to Second-Hand Smoke: Yes Dental Care, Regularly: Yes Physical Activity Frequency: Daily Seatbelt Use: always Sunscreen Use: Yes Physical Exam Physical Exam: On exam he is able to sit up in bed without difficulty. He has minimal discomfort to palpation or percussion across the thoracolumbar region. No abnormal skin markings. He has excellent strength testing to the lower extremities. Results & Data ([facility]) Vital Signs (Past 12 Hours) Vital Signs Temp Pulse Resp BP Pulse Ox 01/01/20 07:31 36.6 C 71 16 159/82 H 99 12/31/19 23:11 36.6 C 74 16 115/72 99 (1) Compression fracture of T12 vertebra Encounter type: subsequent encounter Fracture healing: with routine healing Qualified Code(s): S22.080D - Wedge compression fracture of T11-T12 vertebra, subsequent encounter for fracture with routine healing
[2020-01-01] MEDS: ENOXAPARIN INJ 40 MG/0.4 ML SYR SQ SCH (14:19)
--- NOTE | 2020-01-01 14:53 | Hospitalist Progress Note ---
Date of Service January 01, 2020 Assessment & Plan (1) Fall: Secondary to Alzheimers and forgetting where his bed was moved to. T12 fracture from last fall appears relatively unchanged. No further injuries noted from fall. (2) Compression fracture of T12 vertebra: TLSO brace as tolerated on movement. Continue acetaminophen, lidoderm patch and calcitonin spray. Only required one tramadol yesterday. (3) Weakness: Please repeat PT/OT evaluation if patient refuses please contact physician. (4) Acute dehydration: Appears resolved. (5) HTN (hypertension): Appears to be better no pain controlled. No need for medications. (6) Confusion: Likely to get worse while admitted with underlying Alzheimers but he appears to be at his baseline as far as I can tell but change of environment at home likely caused his fall. (7) Alcohol withdrawal: No sign of this at present. Will continue thiamine supplementation. Less concerned about folate. Admission and Anticipated Discharge Date Admission Date: December 31, 2019 Anticipated date of discharge: 01/02/20 Subjective Unable to get much of a history from patient as he has Alzheimers and thought he was in. Initially thought he was in [place] and wondering where his was. Although he was orientated to month and year. He told me his plan was to go back to [place] soon. Unaware he was in hospital. When told he was in [facility] in [place] he came up with multiple different reasons he might be here, none of which were correct (eg. for cataract surgery, his notes he has a recurring fixation on his eyes). Clearly lack capacity to make the decision on discharge. He current denies any pain. Discussed care with his Tatiana. She felt she was generally coping well with him at home. Concern initially for him having trouble getting the right words out but when she spoke to him today on the phone he appears back to his normal self. Main reason for admission was recommendation for observation by ER rather than any particular concern by herself. Discussed no acute brain MRI findings. Suspect he was just confused due to short term memory loss from Alzheimers and change of environment at home as his bed was moved. Both his Alzheimers and back likely to get worse by being in hospital. We discussed possible discharge home today however noted he refused to work with physical therapy and she would like this set up at home with [facility] home health. Therefore we agreed to plan for discharge tomorrow after physical therapy assessment. She does note he is down to around 8ox of alcohol a day but has not drank for the last 4 days. Review of Systems Review of Systems: All systems reviewed & are unremarkable except as noted in HPI & below Physical Exam Constitutional: WD/WN, vitals as above Eyes: + anicteric sclerae and + abnormal pupil size (miotic) ENMT: external ear and nose normal, oropharynx normal Ears: no hearing impairment Neck: trachea midline, no thyromegaly Respiratory: normal respiratory effort, lungs clear to auscultation Cardiovascular: RRR, no murmur, no edema Musculoskeletal: no cyanosis or clubbing, extremities motor strength 5/5 Neurologic: awake and + confused; + does not move all extremities and no focal motor deficits Speech / Cognition: normal speech Motor/Sensory: no tremor and no sensory deficit No foot drop b/l Psychiatric: Orientation: alert, oriented to person, oriented to time and cooperative; + not oriented to place Results & Data Results & Data ([facility]) Vital Signs (Past 12 Hours) Vital Signs Temp Pulse Resp BP Pulse Ox 01/01/20 07:31 36.6 C 71 16 159/82 H 99 PG Care Time/CCT Total # of Minutes Spent Total Time Spent with Patient: Total time spent is greater than 50% in coordination of care (as documented) at patient's floor/unit and/or counseling patient: Coding Level of Care Code 05739 Subseq Obs Care Lvl 2 Diagnoses Fall W19.XXXA Encounter type: initial encounter Compression fracture of T12 vertebra S22.080D Encounter type: subsequent encounter Fracture healing: with routine healing Weakness R53.1 Acute dehydration E86.0 HTN (hypertension) I10 Hypertension type: essential hypertension Confusion R41.0 Alcohol withdrawal F10.239 (1) Compression fracture of T12 vertebra Encounter type: subsequent encounter Fracture healing: with routine healing Qualified Code(s): S22.080D - Wedge compression fracture of T11-T12 vertebra, subsequent encounter for fracture with routine healing (2) HTN (hypertension) Hypertension type: essential hypertension Qualified Code(s): I10 - Essential (primary) hypertension (3) Fall Encounter type: initial encounter Qualified Code(s): W19.XXXA - Unspecified fall, initial encounter
[2020-01-01] MEDS ORDERED: POTASSIUM CHLORIDE 20 MEQ TABCR PO ONE (17:16)
[2020-01-02] MEDS: ASCORBIC ACID 500 MG TAB PO SCH ×2 (09:43→09:59)
[2020-01-02] MEDS: MULTIVITAMIN TAB PO SCH ×2 (09:43→09:58)
[2020-01-02] MEDS: THIAMINE HCL 100 MG TAB PO SCH ×2 (09:43→09:59)
[2020-01-02] MEDS: CYANOCOBALAMIN 500 MCG TABLET (VITAMIN B-12) PO SCH (09:43)
[2020-01-02] MEDS: CALCITONIN SALMON NA 200 IU/AC 3.7 ML BTL SCH (09:43)
[2020-01-02] MEDS: ACETAMINOPHEN 500 MG TAB PO SCH ×3 (09:43→12:14)
[2020-01-02] MEDS: CHOLECALCIFEROL 1,000 UNITS 25 MCG TAB PO SCH ×2 (09:43→09:59)
[2020-01-02] MEDS: FOLIC ACID 1 MG TAB PO SCH ×2 (09:43→09:58)
[2020-01-02] MEDS: LIDOCAINE 5% 1 PATCH TD SCH (09:44)
--- NOTE | 2020-01-02 12:54 | Discharge Summary ---
Date of Service January 02, 2020 Admission HPI Per Admitting Provider This is a 84 year old male with a history of alzheimers dementia, SIADH, colon cancer s/p partial colectomy with primary anastomosis, vit D def and T12 compression fracture who presents to the ED with frequent falls and worsening confusion. Patient returned home from [place] on December 13 with his . On December 17, he had a syncopal episode and was brought to the ED. Patient was found to have a T12 compression fracture. Patient was referred to orthopedics, but was not seen due to the recent travel. Patient and his have been self quarantined since. Patients moved his bedroom down stairs so he wouldnt have to use the stairs. After going to the bathroom, patient went back upstairs not listening to his . He went to sit down on the bed and fell to the floor. Mrs. Arreola states patient was having good days and bad days with his dementia. Since then, he has had a string of bad days. She has been treating his pain with tylenol and advil. Admission Exam Per Admitting Provider Constitutional: WD/WN, vitals as above Eyes: PERRL, conjunctivae normal, anicteric sclerae ENMT: external ear and nose normal, oropharynx normal Ears: no hearing impairment Neck: trachea midline, no thyromegaly Respiratory: normal respiratory effort, lungs clear to auscultation Cardiovascular: RRR, no murmur, no edema Gastrointestinal (Abdomen): normal bowel sounds, soft, nontender, no hepatosplenomegaly Musculoskeletal: tender at t 12 Neurologic: awake and + confused Psychiatric: Orientation: alert, oriented to person, oriented to place and cooperative Principal Diagnosis Fall Alzheimers Disease Discharge Exam Constitutional WD/WN, vitals as above Eyes + anicteric sclerae and + abnormal pupil size (miotic) ENMT external ear and nose normal, oropharynx normal Ears: no hearing impairment Neck trachea midline, no thyromegaly Respiratory normal respiratory effort, lungs clear to auscultation Cardiovascular RRR, no murmur, no edema Musculoskeletal no cyanosis or clubbing, extremities motor strength 5/5 Spine: no lumbar spinal tenderness and no paraspinal tenderness Neurologic awake and + confused; + does not move all extremities and no focal motor deficits Speech / Cognition: normal speech Motor/Sensory: no tremor and no sensory deficit Psychiatric Orientation: alert, oriented to person, oriented to time and cooperative; + not oriented to place Discharge Data Allergies Allergy/AdvReac Type Severity Reaction Status Date / Time Influenza Virus Vaccines Allergy Mild Rash, Verified 12/31/19 11:22 swelling Consultations 12/31/19 12:17 ED Decision to Admit Stat 12/31/19 14:38 Consult Case Management - Discharge Planning Routine Consult Orthopedic Surgery Routine Ordered Studies 12/31/19 10:38 CT head/brain wo con Stat 12/31/19 10:39 CT abd pelvis IV con only Stat CT chest w con Stat 12/31/19 14:38 MR brain wo con Stat Hospital Course (1) Fall: Deanne Ramirez is an 84 year old male with Alzheimer's disease admitted to [facility] from December 30 to due to acute confused episode and a fall. Likely this was down to the change of environment at his house with underlying Alzheimers. Imaging of your brain showed no acute pathology and stroke was ruled out with an MRI. Physical therapy recommend using a rolling walker at home, stay on the 1st floor with 24 hour care (from your ). For the T12 fracture pain recommend use of TLSO brace while ambulatory for pain relief (although if uncomfortable there is no need to use this as use is for pain relief only). Calcitonin spray is also for pain relief (just use the rest of the bottle given in hospital, no need for intermediate use of this). Use acetaminophen scheduled initially as prescribed (it works better using this regularly than as needed) but can be changed to as needed if you have 1-2 days without any pain. Additionally you have been using lidocaine patches while admitted. These can be purchased over the counter for pain relief. If you have uncontrolled pain despite use of these, please contact your PCP for further advice. (2) Compression fracture of T12 vertebra: (3) Weakness: (4) Acute dehydration: (5) HTN (hypertension): (6) Confusion: (7) Alcohol withdrawal: Total Time Total Time Spent Total Time Spent (In Minutes): 35 Discharge Plan Discharge Items Patient Disposition: Home - Home Health Services Reason For Visit: FALLS/ AMS Discharge Diagnosis: Fall Alzheimers Disease Activity: Per Instructions section Non-emergency contact: Primary Care Provider Call non-emergency contact if: you have any medication questions and your symptoms worsen Follow-up/Referrals: Arnoldo Fuentes MD [Primary Care Provider] - (No routine PCP follow up required) Diet: Regular Addtl Attending Provider Instructions: You were admitted to [facility] from December 30 to due to acute confused episode and a fall. Likely this was down to the change of environment at your house with underlying Alzheimers. Imaging of your brain showed no acute pathology and stroke was ruled out with an MRI. Physical therapy recommend using a rolling walker at home, stay on the 1st floor with 24 hour care (from your ). For the T12 fracture pain recommend use of TLSO brace while ambulatory for pain relief (although if uncomfortable there is no need to use this as use is for pain relief only). Calcitonin spray is also for pain relief (just use the rest of the bottle given in hospital, no need for intermediate use of this). Use acetaminophen scheduled initially as prescribed (it works better using this regularly than as needed) but can be changed to as needed if you have 1-2 days without any pain. Additionally you have been using lidocaine patches while admitted. These can be purchased over the counter for pain relief. If you have uncontrolled pain despite use of these, please contact your PCP for further advice. Kind regards, Dr Ramses Young Pending Studies at Discharge: No Stand-Alone Forms: My [facility] Medications and DC Order Prescriptions: New acetaminophen 500 mg Tablet 1,000 mg PO TID 7 Days Qty: 42 RF: 0 calcitonin (salmon) 200 unit/actuation [place],Non-Aerosol 1 spray NA DAILY Qty: 3.7 RF: 0 Continued cyanocobalamin (vitamin B-12) 1,000 mcg/mL kit 1,000 mcg IM MONTHLY RF: 0 ascorbic acid (vitamin C) [Vitamin C] 1,000 mg Tablet 0 mg PO DAILY RF: 0 cyanocobalamin (vitamin B-12) [Vitamin B-12] 1,000 mcg Tablet 0 mcg PO DAILY RF: 0 cholecalciferol (vitamin D3) [Vitamin D3] 25 mcg (1,000 unit) Tablet 0 unit PO DAILY RF: 0 Discharge Orders: Discharge Order (Routine); Ordered 01/02/20 Ordered By: Ramses Tellez/Other Patient Handouts: Falls Risks Prevent, Falls Prevent Safe Cane Walker, Falls Preventing Admission Data Admit Date/Time: 12/31/19 13:31 Attending Provider: Ramses Young Admit Provider: Ramses Rainey Primary Care Provider: Arnoldo Fuentes Other Providers: Ramses Rainey ; Jayme Rock ; [facility] Healthcare Other Interventions: Discharge Summary Assessment (RN) Last Done: 01/02/20 14:06 DC Date/Time DO NOT enter until pt leaves facility: 01/02/20 14:44 Coding Level of Care Code 24751 OBS Care - Discharge Diagnoses Fall W19.XXXA Encounter type: initial encounter Compression fracture of T12 vertebra S22.080D Encounter type: subsequent encounter Fracture healing: with routine healing Weakness R53.1 Acute dehydration E86.0 HTN (hypertension) I10 Hypertension type: essential hypertension Confusion R41.0 Alcohol withdrawal F10.239
== END 2020-01-02 14:44 | disposition home health service (06) ==
LOC: 3E 10:18 → ED 10:18 → SUATTDRO 13:31 → 3E 14:17